=== PATIENT | female | born 1945 | race Caucasian/White ===

== ENCOUNTER 2024-01-19 14:29 | Outpatient (CLI) | payer MEDICARE ==
[2024-01-19 15:22] VITALS: PULSE 71; RESP 16; O2SAT 95
== END 2024-01-19 23:59 | disposition home or self-care (01) ==
LOC: RT 14:29
PROVIDERS: ATTEND Internal Medicine
DX: J98.11 Atelectasis (principal)
CPT/HCPCS: 94010; 94760

== ENCOUNTER 2024-03-16 16:13 | Outpatient (CLI) | payer MEDICARE, BC ==
[~2024-03-16] VITALS: Ht 160 cm; Wt 83.9 kg
[2024-03-16] MEDS: albuterol 2.5 MG/3 ML nebule NEB PRN (16:53)
[2024-03-16 17:01] VITALS: PULSE 76; RESP 16; O2SAT 97
[2024-03-16 17:13] VITALS: PULSE 74; RESP 18
== END 2024-03-16 23:59 | disposition home or self-care (01) ==
LOC: RT 16:13
PROVIDERS: ATTEND Internal Medicine
DX: J44.9 Chronic obstructive pulmonary disease, unspecified (principal); J98.11 Atelectasis
CPT/HCPCS: 94060; 94727; 94729; 94760; J7030; Z7610

== ENCOUNTER 2024-04-14 12:43 | Outpatient (CLI) | payer MEDICARE, BC | END 2024-04-14 23:59 | disposition home or self-care (01) | LOC: RAD 12:43 | PROVIDERS: ATTEND Internal Medicine | DX: J98.11 Atelectasis (principal); J98.4 Other disorders of lung; J84.10 Pulmonary fibrosis, unspecified | CPT/HCPCS: 71250 ==